=== PATIENT | female | born 1960 | race Two or more races ===

== ENCOUNTER 2019-08-18 14:24 | Emergency (ER) | payer OTHER ==
[~2019-08-18] VITALS: Ht 162.6 cm; Wt 68.0 kg
[2019-08-18 14:42] VITALS: BP 157/99
[2019-08-18] MEDS ORDERED: BUPROPION XL300 MG ORAL (14:45)
[2019-08-18] MEDS ORDERED: LAMICTAL5 MG PO (14:45)
[2019-08-18 14:50] VITALS: BP 157/99
[2019-08-18] MEDS ORDERED: CEPHALEXIN500 MG ORAL (15:04)
[2019-08-18] MEDS ORDERED: ONDANSETRON ODT4 MG BC (15:04)
--- NOTE | 2019-08-23 23:56 | Emergency Room Report ---
History of Present Illness General Chief Complaint: Skin Rash/Abscess Source: Patient Present Illness HPI 59-year-old female presents with insect bites. States that her brother came to help her move and she stated she noticed multiple insects inside her apartment. Patient states both her and her brother were bitten. Have multiple bites to her arms and legs. States they are itchy. Pain is dull, 3 out of 10, nonradiating. Denies fevers or chills. States she feels nauseous. Denies vomiting. No other aggravating relieving factors. Denies any other associated symptoms Allergies: Coded Allergies: CODEINE (Verified Allergy, Unknown, 08/18/19) COVID-19 Screening Contact w/high risk pt: No Recent Travel to affected area: No Experienced COVID-19 symptoms?: No COVID-19 Testing performed DEPUTY K 9: No Patient History Past Medical History: none Past Surgical History: none Pertinent Family History: none Social History: Denies: smoking, alcohol use, drug use Now: No Immunizations: UTD Reviewed Nursing Documentation: PMH: Agreed; PSxH: Agreed Review of Systems All Other Systems: negative except mentioned in HPI Physical Exam Sp02 EP Interpretation: reviewed, normal General Appearance: no apparent distress, alert, GCS 15, non-toxic Head: normocephalic, atraumatic Eyes: bilateral eye normal inspection, bilateral eye PERRL ENT: hearing grossly normal, normal pharynx, no angioedema, normal voice Neck: full range of motion, supple/symm/no masses Respiratory: chest non-tender, lungs clear, normal breath sounds, speaking full sentences Cardiovascular #1: regular rate, rhythm, no edema Cardiovascular #2: 2+ carotid (R), 2+ carotid (L), 2+ radial (R), 2+ radial (L) , 2+ dorsalis pedis (R), 2+ dorsalis pedis (L) Gastrointestinal: normal bowel sounds, non tender, soft, non-distended, no guarding, no rebound Rectal: deferred Genitourinary: normal inspection, no CVA tenderness Musculoskeletal: back normal, normal range of motion, gait/station normal, non- tender Neurologic: alert, motor strength/tone normal, oriented x3, sensory intact, responsive, speech normal Psychiatric: judgement/insight normal, memory normal, mood/affect normal, no suicidal/homicidal ideation Reflexes: 3+ bicep (R), 3+ bicep (L), 3+ tricep (R), 3+ tricep (L), 3+ knee (R) , 3+ knee (L) Skin: other - multiple areas of erythema/induration to arms and legs. nonerythematous base. no fluctuance Lymphatic: no adenopathy Medical Decision Making Diagnostic Impression: Primary Impression: Insect bites Qualified Codes: W57.XXXA - Bitten or stung by nonvenomous insect and other nonvenomous arthropods, initial encounter ER Course Hospital Course 59-year-old female presents to ED with redness, itching to arms and legs Differential diagnoses include: Cellulitis, dermatitis, insect bite, abscess Clinical course Patient placed on stretcher. After initial history, physical exam reveals a female in no acute distress. On exam there are multiple site for mild erythema and induration to the arms and legs. There is no fluctuance. Afebrile, nontoxic-appearing. Patient appears anxious. Patient is asking multiple questions of whether she should helena her landlord. I explained it is not appropriate for me to be providing input into these issues. But I am happy to provide her with medical care. We will discharge home with antibiotics. Warm compresses. Safe for discharge with close outpatient follow-up. I will provide referrals Diagnosis - bug bite stable and discharged to home with prescription for zofran, Keflex. Instructed to followup with PMD. Instructed return to ED if symptoms recur or worsen Status: improved Disposition: HOME, SELF-CARE Condition: Stable Scripts Ondansetron Odt* (ZOFRAN ODT*) 4 Mg Tab.rapdis 4 MG BC EVERY 6 HOURS PRN for Nausea & Vomiting, #10 TAB 0 Refills Prov: Melvin Grimaldo MD 08/18/19 Cephalexin* (KEFLEX*) 500 Mg Capsule 500 MG ORAL EVERY 6 HOURS for 7 Days, CAP Prov: Melvin Grimaldo MD 08/18/19 Referrals: NON PHYSICIAN (PCP) Partha Mullen [facility] Patient Instructions: Insect Bite, [id number] Melvin Grimaldo MD Aug 23, 2019 23:56
== END 2019-08-18 15:10 | disposition home or self-care (01) ==
LOC: EMR 15:00
DX: S40.862A Insect bite (nonvenomous) of left upper arm, initial encounter (principal); S40.861A Insect bite (nonvenomous) of right upper arm, initial encounter; S80.862A Insect bite (nonvenomous), left lower leg, initial encounter; S80.861A Insect bite (nonvenomous), right lower leg, initial encounter; W57.XXXA Bitten or stung by nonvenomous insect and other nonvenomous arthropods, initial encounter; Y92.9 Unspecified place or not applicable; Z88.6 Allergy status to analgesic agent
CPT/HCPCS: 99282

== ENCOUNTER 2019-09-24 21:09 | Emergency (ER) | payer OTHER ==
[~2019-09-24 21:09] MED LIST: BUPROPION XL300 MG ORAL; CEPHALEXIN500 MG ORAL; LAMICTAL5 MG PO; ONDANSETRON ODT4 MG BC
[2019-09-24] MEDS ORDERED: ACETAMINOPHEN500 M3 ORAL (22:49)
[2019-09-24] MEDS ORDERED: OMEPRAZOLE20 M2 ORAL (22:49)
[2019-09-24] MEDS ORDERED: ONDANSETRON ODT4 MG BC (22:49)
[2019-09-24] MEDS ORDERED: HYDROCORTISONE28 G2 TP (23:21)
== END 2019-09-24 23:30 | disposition home or self-care (01) ==
DX: R51 Headache (principal); R11.0 Nausea; S30.860A Insect bite (nonvenomous) of lower back and pelvis, initial encounter; W57.XXXA Bitten or stung by nonvenomous insect and other nonvenomous arthropods, initial encounter; Y92.9 Unspecified place or not applicable; Z88.6 Allergy status to analgesic agent
CPT/HCPCS: 71045; Z7502